=== PATIENT | male | born 1955 | race Caucasian/White ===

== ENCOUNTER 2021-05-09 07:10 | Outpatient (CLI) | payer MEDICARE | END 2021-05-09 07:11 | disposition home or self-care (01) | LOC: BICULT 07:10 | PROVIDERS: ATTEND Internal Medicine | DX: R13.10 Dysphagia, unspecified (principal); K21.9 Gastro-esophageal reflux disease without esophagitis; K74.60 Unspecified cirrhosis of liver; K76.0 Fatty (change of) liver, not elsewhere classified; Z86.010 Personal history of colon polyps | CPT/HCPCS: 76700 ==

== ENCOUNTER 2022-02-21 10:55 | Outpatient (CLI) | payer MEDICARE | END 2022-02-21 10:56 | disposition home or self-care (01) | LOC: BICMAMMO 10:55 | PROVIDERS: ATTEND Internal Medicine Rheumatology | DX: M81.0 Age-related osteoporosis without current pathological fracture (principal) | CPT/HCPCS: 77080 ==

== ENCOUNTER 2022-03-01 12:53 | Outpatient (CLI) | payer MEDICARE | END 2022-03-01 12:54 | disposition home or self-care (01) | LOC: BICCT 12:53 | PROVIDERS: ATTEND Internal Medicine Rheumatology | DX: R91.1 Solitary pulmonary nodule (principal); M81.0 Age-related osteoporosis without current pathological fracture; J84.10 Pulmonary fibrosis, unspecified; I25.10 Atherosclerotic heart disease of native coronary artery without angina pectoris; J98.4 Other disorders of lung | CPT/HCPCS: 71250 ==